=== PATIENT | male | born 1940 ===

== ENCOUNTER 2016-12-07 09:49 | Day surgery (SDC) | payer MEDICARE, OTHER ==
[2015-09-16 06:40] VITALS: BMI 28.8
[2016-12-07 10:30] VITALS: RESP 18
[2016-12-07] MEDS ORDERED: Midazolam 2 MG/2 ML VIAL ONE (12:01)
[2016-12-07] MEDS ORDERED: Lidocaine 1% Inj (20ml) IJ ONE ×2 (12:09)
[2016-12-07] MEDS ORDERED: Bupivacaine HCl 0.25% PF (10 ml) Inj IJ ONE ×2 (12:09)
[2016-12-07] MEDS ORDERED: MethylPREDNISolone Depo 40 mg/ml Inj IM ONE (12:10)
[2016-12-07] MEDS ORDERED: Iohexol 300 10 ML IJ ONE ×2 (12:10)
[2016-12-07] MEDS ORDERED: Lactated Ringer's 1,000 ML IV SCH (12:23)
[2016-12-07 14:26] VITALS: BP 139/89; PULSE 72; TEMP 97.7
[2016-12-07 14:29] VITALS: O2SAT 99
--- NOTE | 2016-12-07 14:51 | RAD ---
PROCEDURE: Intraoperative Fluoroscopy. HISTORY: PAIN MANAGEMENT FINDINGS: Fluoroscopic assistance was provided. 32.3 seconds fluoroscopy time utilized during this procedure. Radiation dose = 21.65 mGy.
--- NOTE | 2016-12-07 21:26 | OP ---
PROCEDURE DATE: 12/07/2016 PREOPERATIVE DIAGNOSIS: Lumbar radiculopathy. POSTOPERATIVE DIAGNOSIS: Lumbar radiculopathy. PROCEDURE: Right L4-L5, L5-S1 transforaminal epidural steroid injection. ANESTHESIOLOGIST: Dr. Coombs. SURGEON: Dr. Gallegos. TYPE OF ANESTHESIA: Monitored anesthesia care. COMPLICATIONS: None. SPECIMEN: None. PROCEDURE: As follows, after we had discussion of the procedure with the patient including its risks, benefits, alternative, outcome data, possibility of no effect or increased pain, the patient consented to the procedure. He denies any recent infections, bleeding tendencies or being on anticoagulants. Decision was then made to proceed to the OR. The patient was placed on a fluoroscopy table in a prone position with 2 pillows underneath his abdomen. The back was prepped and draped in the usual sterile fashion and sterile technique was adhered during the entire procedure. The L4 and L5 vertebral levels were first identified in the anterior and posterior view. Angulation towards the right at approximately 25 degrees was obtained to maximize the visualization of the right L4 and L5 pedicles. The skin overlying the 6 o'clock position of both pedicles was infiltrated with 1% lidocaine using a 25-gauge needle. Subsequently, a 22-gauge 3.5 inch spinal needle was incrementally advanced under fluoroscopic guidance until tip of the needle lay within the intervertebral foramen. After satisfactory positioning of both needles, approximately 0.5 mL of Isovue contrast was injected showing appropriate epidural nerve root spread without any signs of CSF or intervenous involvement. At this point, approximately 3 mL of 0.25% Marcaine and Depo Medrol mixture was injected. The needle was then removed and the patient's back was clean and dry and bandages were applied. The patient was then transferred to recovery area in good conditions without any signs of BRASS CUTTER toxicity or any neurological deficits. He will have to follow up in office in approximately 2-4 weeks. En-Rj Gallegos MD
== END 2016-12-07 14:50 | disposition home or self-care (01) ==
LOC: H.OPSURG 09:49
PROVIDERS: ATTEND Anesthesiology
DX: M54.16 Radiculopathy, lumbar region (principal); E11.9 Type 2 diabetes mellitus without complications; E78.5 Hyperlipidemia, unspecified; I10 Essential (primary) hypertension
CPT/HCPCS: 64483; 64484; 82948; J1030; J2250; J2405; J3010; J7120; Q9967

== ENCOUNTER 2016-12-31 10:30 | Emergency (ER) | payer MEDICARE, OTHER ==
[2016-12-31 10:30] VITALS: BMI 28.8
--- NOTE | 2016-12-31 11:19 | RAD ---
HISTORY: RUQ pain, chest discomfort COMPARISON: Chest radiographs 01/03/2016. TECHNIQUE: Chest PA and lateral FINDINGS: LUNGS: No active pulmonary disease. PLEURA: No significant pleural effusion identified. No pneumothorax apparent. CARDIOVASCULAR: Sternotomy wires as well as cardiomegaly are stable appearing. OSSEOUS STRUCTURES: No significant abnormalities. VISUALIZED UPPER ABDOMEN: Normal. OTHER FINDINGS: None. IMPRESSION: No interval acute cardiopulmonary disease identified. Cardiomegaly is stable and sternotomy wires are again seen compared chest radiographs 01/03/2016.
--- NOTE | 2016-12-31 11:33 | ED PDOC ---
HPI: Abdomen Time Seen by Provider: 12/31/16 10:45 Chief Complaint (Nursing): Abdominal Pain Chief Complaint (Provider): Upper Abdominal Pain History Per: Patient History/Exam Limitations: no limitations Onset/Duration Of Symptoms: Days (x1 month ) Current Symptoms Are (Timing): Still Present Additional Complaint(s): Will Barrios is a 76 year old male with a past medical history of diabetes and hypertension and a past surgical history of a heart transplant in 2000 presenting to the ED for an evaluation of abdominal pain described as upper abdomen pain radiating to his right side ongoing intermittently for 1 month. The patient states this pain worsens with leaning forward or when taking deep breaths. He denies nausea, vomiting, diarrhea, fever, noticing any changes in relation to eating, or abdominal surgeries. PMD: Will Blandon MD Past Medical History Reviewed: Historical Data, Nursing Documentation, Vital Signs Vital Signs: Last Vital Signs Temp 97 F L 12/31/16 10:34 Pulse 95 H 12/31/16 10:34 Resp BP 143/74 12/31/16 10:34 Pulse Ox 97 12/31/16 10:34 - Medical History PMH: Arthritis, Diabetes, HTN, Hypercholesterolemia Denies: Chronic Kidney Disease - Surgical History Other surgeries: heart transplant in 2000 - Family History Family History: States: Unknown Family Hx - Social History Current smoker - smoking cessation education provided: No Ex-Smoker (has not smoked in the last 12 months): No Alcohol: None Drugs: Denies - Home Medications Home Medications: Ambulatory Orders Medication Instructions Recorded Aspirin [Aspirin] 81 mg PO DAILY 12/31/13 Cyclosporine, Modified [Neoral] 25 mg PO DAILY 12/31/13 Fenofibrate [Tricor] 145 mg PO DAILY 12/31/13 Gabapentin [Neurontin] 300 mg PO DAILY 12/31/13 Insulin Glargine,Hum.rec.anlog 14 unit SC DAILY 12/31/13 [Lantus] Lamotrigine [Lamictal] 150 mg PO DAILY 12/31/13 Mycophenolate Mofetil [Cellcept] 500 mg PO BID 12/31/13 [id number] Ethyl Esters [Lovaza] 1 gm PO DAILY 12/31/13 Pantoprazole Sodium [Protonix] 40 mg PO DAILY 12/31/13 Prednisone 2.5 mg PO DAILY 10/09/14 Ramipril [Altace] 10 mg PO DAILY 12/31/13 Vitamin B Complex and Vitami 1 mg PO DAILY 12/31/13 [Vitaplex] amLODIPine [Norvasc] 2.5 mg PO DAILY 12/31/13 Hydroxychloroquine Sulfate 200 mg PO DAILY 03/03/15 [Plaquenil] Simvastatin [Simvastatin] 20 mg PO DAILY 03/03/15 Tramadol Hydrochloride [Tramadol] 37.5 mg PO DAILY 03/03/15 - Allergies Allergies/Adverse Reactions: Allergies Allergy/AdvReac Type Severity Reaction Status Date / Time No Known Allergies Allergy Verified 12/31/16 11:17 Review of Systems ROS Statement: Except As Marked, All Systems Reviewed And Found Negative Gastrointestinal: Positive for: Abdominal Pain Physical Exam - Reviewed Nursing Documentation Reviewed: Yes Vital Signs Reviewed: Yes - Physical Exam Appears: Positive for: Non-toxic, No Acute Distress Head Exam: Positive for: ATRAUMATIC, NORMOCEPHALIC Skin: Positive for: Normal Color, Warm, Dry Eye Exam: Positive for: Normal appearance, EOMI, PERRL ENT: Positive for: Normal ENT Inspection Neck: Positive for: Normal, Supple Cardiovascular/Chest: Positive for: Regular Rate, Rhythm, Chest Non Tender, Other (healed central chest scar). Negative for: Murmur Respiratory: Positive for: Normal Breath Sounds. Negative for: Respiratory Distress Gastrointestinal/Abdominal: Positive for: Soft, Tenderness (mild right upper quadrant tenderness ). Negative for: Other (no McBurney's tenderness ) Back: Positive for: Normal Inspection. Negative for: L CVA Tenderness, R CVA Tenderness Extremity: Positive for: Normal ROM Neurologic/Psych: Positive for: Alert, Oriented (x3). Negative for: Motor/ Sensory Deficits - ECG O2 Sat by Pulse Oximetry: 97 (RA) Pulse Ox Interpretation: Normal Medical Decision Making Medical Decision Making: Time: 10:45 Impression: Upper Abdominal pain Plan: Work up with blood work & US/Xray * ED ekg * CMP * Lipase * CBC (with differential) * Urinalysis * [RAD] Chest Two Views (PA/LAT) * [US] Abdomen Complete * Reevaluation Scribe Attestation: Documented by Nikki Palomo, acting as a scribe for Quoc Chan DO. Provider Scribe Attestation: All medical record entries made by the Scribe were at my direction and personally dictated by me. I have reviewed the chart and agree that the record accurately reflects my personal performance of the history, physical exam, medical decision making, and the department course for this patient. I have also personally directed, reviewed, and agree with the discharge instructions and disposition. Disposition - Disposition
[2016-12-31 11:39] LABS: BASO % 0.6 % (0.0-2.0); EOS # 0.1 K/uL (0.0-0.7); EOS % 1.5 % (0.0-4.0); HEMATOCRIT 35.7 % (35.0-51.0); LYMPH # 1.1 K/uL (1.0-4.3); LYMPH % 13.8 % (20.0-40.0); MEAN CELL VOLUME 91.5 fl (80.0-94.0); MEAN CORPUSCULAR HEMOGLOBIN 30.5 pg (27.0-31.0); MEAN CORPUSCULAR HGB CONC 33.4 g/dL (33.0-37.0); MEAN PLATELET VOLUME 8.2 fl (7.2-11.7); MONO # 0.8 K/uL (0.0-0.8); MONO % 10.8 % (0.0-10.0); NEUT # 5.8 K/uL (1.8-7.0); NEUT % 73.3 % (50.0-75.0); NRBC % 0.1 % (0.0-0.0); RED CELL DISTRIBUTION WIDTH 14.2 % (11.5-14.5); WHITE BLOOD COUNT 7.8 K/uL (4.8-10.8)
[2016-12-31 12:05] LABS: ALB/GLOB RATIO 1.3 (1.0-2.1); BILIRUBIN,TOTAL 0.5 mg/dl (0.2-1.3); CALCIUM 9.6 mg/dL (8.4-10.2); POTASSIUM 4.9 MMOL/L (3.6-5.0); TOTAL PROTEIN 7.3 G/DL (6.3-8.2)
--- NOTE | 2016-12-31 12:43 | US ---
HISTORY: RUQ pain x1 month COMPARISON: None available TECHNIQUE: Sonographic evaluation of the abdomen. FINDINGS: LIVER: Measures 16.2 cm in sagittal dimension. Echogenic liver may be seen in setting of hepatic parenchymal disease or fatty infiltration. No focal hepatic mass identified. The main portal vein appears patent with normal directional flow. No intrahepatic bile duct dilatation. GALLBLADDER: No gallstones. No gallbladder wall thickening. Negative sonographic Sue's sign as assessed by the [employer] cross executive director. COMMON BILE DUCT: Measures 5 mm. PANCREAS: Not well visualized. RIGHT KIDNEY: Measures 9.2 x 4.7 x 4.7cm. No obstructing calculus or hydronephrosis identified. Midpole renal cyst measures approximately 1.0 x 1.0 x 0.8 cm. LEFT KIDNEY: Measures 11.6 x 6.2 x 5.8cm. No obstructing calculus or hydronephrosis identified. The lower pole renal cyst measures approximately 1.9 x 1.5 x 1.7 cm. SPLEEN: Measures approximately 10 cm. AORTA: Not well-visualized. IVC: Not well-visualized. OTHER FINDINGS: None. IMPRESSION: Echogenic liver may be seen in setting of hepatic parenchymal disease or fatty infiltration. Bilateral renal cysts.
[2016-12-31] MEDS ORDERED: Iohexol 240 (50 ml) PO ONE (13:30)
[2016-12-31 13:59] LABS: RBC URINE 2 /hpf (0-3); URINE BILIRUBIN NEGATIVE (NEGATIVE); URINE BLOOD NEGATIVE (NEGATIVE); URINE COLOR YELLOW (YELLOW); URINE GLUCOSE (UA) NEG (Normal); URINE KETONE NEGATIVE (NEGATIVE); URINE LEUKOCYTE ESTERASE NEG Leu/uL (Negative); URINE PROTEIN NEGATIVE (NEGATIVE); URINE UROBILINOGEN 0.2-1.0 mg/dL (0.2-1.0); WBC URINE < 1 /hpf (0-5)
[2016-12-31] MEDS ORDERED: Iohexol 240 (50 ml) ONE (14:13)
--- NOTE | 2016-12-31 17:05 | CT ---
PROCEDURE: CT Abdomen and Pelvis with contrast HISTORY: upper abd pain hx heart transplant COMPARISON: None. TECHNIQUE: Contrast dose: Radiation dose: Total exam DLP = 1015.50 mGy-cm. This CT exam was performed using one or more of the following dose reduction techniques: Automated exposure control, adjustment of the mA and/or kV according to patient size, and/or use of iterative reconstruction technique. FINDINGS: LOWER THORAX: Cardiomegaly. No pleural or pericardial effusion grossly evident. LIVER: Unremarkable. No gross lesion or ductal dilatation. GALLBLADDER AND BILE DUCTS: Unremarkable. PANCREAS: Unremarkable. No gross lesion or ductal dilatation. SPLEEN: Unremarkable. ADRENALS: Unremarkable. No mass. KIDNEYS AND URETERS: 1.8 cm left renal cyst measures 1 Hounsfield unit posteriorly off the midpole left kidney. Bilateral streaky perinephric changes are nonspecific. No obstructive uropathy bilaterally or radiodense urolithiasis. Clinically correlate further nevertheless. VASCULATURE: Mildly atherosclerotic abdominal aorta noted. No aortic aneurysm. BOWEL: Sigmoid diverticulosis without diverticulitis evident grossly. No obstruction. No gross mural thickening. APPENDIX: Normal appendix. PERITONEUM: Unremarkable. No free fluid. No free air. LYMPH NODES: Unremarkable. No enlarged lymph nodes. BLADDER: Limited evaluation of the urinary bladder wall due to incomplete distention. No nodularity is identified nevertheless. REPRODUCTIVE: Enlarged prostate gland. BONES: No acute fracture. OTHER FINDINGS: Tiny umbilical hernia appears to contain only fat at this time. IMPRESSION: 1. Lack intravenous contrast limits interpretation however there are no definitive acute abdominal findings as discussed above. 2. Sigmoid diverticulosis without definite diverticulitis. 3. Enlarged prostate gland. 4. Small umbilical hernia contains only fat. 5. Nonspecific bilateral perinephric streaky changes without obstructive uropathy grossly evident.
[2016-12-31 17:32] VITALS: BP 146/80; PULSE 75; RESP 18; TEMP 98; O2SAT 99
--- NOTE | 2017-01-01 12:46 | CARD ---
APPROVED REPORT EKG Measurement Heart [id number] <Conclusion> Normal sinus rhythm Normal ECG
== END 2016-12-31 17:57 | disposition home or self-care (01) ==
LOC: H.ER 10:30
DX: R10.11 Right upper quadrant pain (principal); E11.9 Type 2 diabetes mellitus without complications; I10 Essential (primary) hypertension; Z94.1 Heart transplant status
CPT/HCPCS: 71020; 74176; 76700; 80053; 81003; 83690; 85025; 93005; 99283; Q9966

== ENCOUNTER 2017-02-28 10:04 | Day surgery (SDC) | payer MEDICARE, OTHER ==
[2017-02-28] MEDS ORDERED: Lactated Ringer's 1,000 ML IV ONE (10:28)
[2017-02-28 10:45] VITALS: TEMP 97.6
[2017-02-28] MEDS ORDERED: Lidocaine 2% MPF (5 ml) Inj ONE (11:28)
[2017-02-28] MEDS ORDERED: Propofol 10 mg/ml Inj (20 ML) ONE (11:28)
[2017-02-28 11:55] VITALS: O2SAT 99
[2017-02-28 12:00] VITALS: BP 125/70; PULSE 71; RESP 16
== END 2017-02-28 14:47 | disposition home or self-care (01) ==
LOC: H.ENDO 10:04
PROVIDERS: ATTEND Internal Medicine Gastroenterology
DX: R10.13 Epigastric pain (principal); E11.9 Type 2 diabetes mellitus without complications; I25.10 Atherosclerotic heart disease of native coronary artery without angina pectoris; Z94.1 Heart transplant status; K22.8 Other specified diseases of esophagus; K31.7 Polyp of stomach and duodenum; K31.9 Disease of stomach and duodenum, unspecified
CPT/HCPCS: 43239; 88305; J2704; J7120

== ENCOUNTER 2017-03-13 09:35 | Day surgery (SDC) | payer MEDICARE, OTHER ==
[2017-03-13 10:24] VITALS: RESP 18
[2017-03-13] MEDS ORDERED: methylPREDNISolone Depo 80 mg/ml Inj ONE (10:29)
[2017-03-13] MEDS ORDERED: Iohexol 300 10 ML ONE (10:30)
[2017-03-13] MEDS ORDERED: Bupivacaine HCl 0.25% PF (30 ml) Inj ONE (10:30)
[2017-03-13] MEDS ORDERED: Lidocaine 1% Inj (20ml) ONE (10:30)
[2017-03-13] MEDS ORDERED: Lactated Ringer's 1,000 ML IV ONE (11:05)
[2017-03-13] MEDS ORDERED: Midazolam 2 MG/2 ML VIAL ONE (11:06)
[2017-03-13] MEDS ORDERED: Lactated Ringer's 1,000 ML IV SCH (11:45)
[2017-03-13 12:32] VITALS: BP 129/76; PULSE 76; TEMP 97.6; O2SAT 99
--- NOTE | 2017-03-13 15:15 | OP ---
PROCEDURE DATE: 03/13/2017 PREOPERATIVE DIAGNOSIS: Lumbar radiculopathy. POSTOPERATIVE DIAGNOSIS: Lumbar radiculopathy. PROCEDURE: Right L4-L5, L5-S1 transforaminal epidural steroid injection. ANESTHESIA ADMINISTERED BY: Dr. Burleson. SURGEON: Candice Gallegos MD TYPE OF ANESTHESIA: Monitored anesthesia care. COMPLICATIONS: None. SPECIMEN: None. DESCRIPTION OF PROCEDURE: After we had discussion of the procedure with the patient including its risks, benefits, alternatives, outcome data, possibility of no effect or increased pain, the patient consented to the procedure. He denies any recent infections, bleeding tendencies, or being on anticoagulants, decision was then made to proceed to the OR. The patient was placed on a fluoroscopy table in a prone position with 2 pillows underneath his abdomen. The back was prepped and draped in the usual sterile fashion and sterile technique was adhered to during the entire procedure. The L4 and L5 vertebral levels were first identified in the anterior and posterior view. Angulation towards the right at approximately 25 degrees was used to maximize the visualization of the right L4 and L5 pedicles. The skin overlying the 6 o'clock position of both pedicles was infiltrated with 1% lidocaine using 25-gauge needle. Subsequently, a 22-gauge 2.5-inch spinal needle was then incrementally advanced under fluoroscopic guidance until tip of the needle lay within the intravertebral foramen. At this point, approximately 0.5 mL of Isovue contrast was injected to reveal appropriate epidural and nerve root spread without any signs of CSF or intravenous involvement. At this point, approximately 3 mL of 0.25% Marcaine and Depo-Medrol mixture was injected. The needle was then removed and the patient's back was cleaned and dried. Bandages were applied. The patient was then transferred to the recovery area in good conditions without any signs of SNACK STEWARDESS toxicity or any neurological deficits. He will have a followup in our office in approximately 2 to 4 weeks. Candice Gallegos MD
--- NOTE | 2017-03-14 18:01 | RAD ---
PROCEDURE: Lumbar epidural HISTORY: PAIN MANAGEMENT COMPARISON: None TECHNIQUE: Standard protocol for this study/examination. FINDINGS: Total fluoroscopic time (continuous mode) utilized during the procedure: 38.1 seconds. Total exam DLP: (mGy): 15.54 IMPRESSION: Less than 1 hr fluoroscopic time utilized during performance of the procedure.
== END 2017-03-13 13:10 | disposition home or self-care (01) ==
LOC: H.OPSURG 09:35
PROVIDERS: ATTEND Anesthesiology
DX: M54.16 Radiculopathy, lumbar region (principal); I25.10 Atherosclerotic heart disease of native coronary artery without angina pectoris; I10 Essential (primary) hypertension
CPT/HCPCS: 64483; 64484; 82948; J1040; J2250; J3010; J7120; Q9967

== ENCOUNTER 2017-05-17 06:03 | Day surgery (SDC) | payer MEDICARE, MEDICAID ==
[2017-05-17 06:28] VITALS: RESP 20
[2017-05-17 06:40] VITALS: BMI 27.3
[2017-05-17] MEDS ORDERED: Lactated Ringer's 1,000 ML IV ONE (06:46)
[2017-05-17] MEDS ORDERED: MethylPREDNISolone Depo 40 mg/ml Inj ONE (07:42)
[2017-05-17] MEDS ORDERED: Iohexol 300 10 ML ONE (07:42)
[2017-05-17] MEDS ORDERED: Bupivacaine HCl 0.25% PF (10 ml) Inj ONE (07:43)
[2017-05-17] MEDS ORDERED: Lidocaine 1% Inj (20ml) ONE (07:43)
[2017-05-17] MEDS ORDERED: Midazolam 2 MG/2 ML VIAL ONE (07:51)
[2017-05-17 08:40] VITALS: O2SAT 100
[2017-05-17] MEDS ORDERED: Lactated Ringer's 1,000 ML IV SCH (08:45)
[2017-05-17 09:12] VITALS: BP 141/80; PULSE 84; TEMP 97.6
--- NOTE | 2017-05-17 09:29 | OP ---
PROCEDURE DATE: 05/17/2017 PREOPERATIVE DIAGNOSIS: Lumbar radiculopathy. POSTOPERATIVE DIAGNOSIS: Lumbar radiculopathy. PROCEDURE: Left L4-L5 and L5-S1 transforaminal epidural steroid injection and right L5-S1 transforaminal epidural steroid injection. ANESTHESIOLOGIST: Pablito Shearer MD SURGEON: Candice Gallegos MD TYPE OF ANESTHESIA: Monitored anesthesia care. COMPLICATIONS: None. SPECIMEN: None. DESCRIPTION OF PROCEDURE: As follows. After we had discussion of the procedure with the patient including its risks, benefits, alternatives, outcome data, possibility of no effect or increased pain, the patient consented to the procedure. He denies any recent infections, bleeding tendencies, or being on anticoagulants, a decision was then made to proceed to the OR. The patient was placed on a fluoroscopy table in a prone position with 2 pillows underneath his abdomen. The back was prepped and draped in the usual sterile fashion and sterile technique was adhered to during the entire procedure. The L4 and L5 vertebral levels were first identified in the anterior and posterior view. Angulation towards the left at approximately 25 degrees was used to maximize the visualization of the left L4 and L5 pedicles. The skin overlying the 6 o'clock position of both pedicles was infiltrated with 1% lidocaine using 25-gauge needle. Subsequently, a 22-gauge 3.5-inch spinal needle was then incrementally advanced under fluoroscopic guidance until tip of the needle lie within the intravertebral foramen. After satisfactory position of both needles, approximately 0.5 mL of Isovue contrast was injected showing appropriate epidural nerve root spread without any signs of CSF or intravenous involvement. At this point, approximately 3 mL of 0.25% Marcaine and Depo-Medrol mixture was injected. The needle was then removed and the same exact procedure was performed on the contralateral right side only at the L5-S1 level. At the end of the case, the patient's back was cleaned and dried, and bandages were applied. The patient was then transferred to the recovery area in good conditions without any signs of BECK OPERATOR toxicity or any neurological deficits. He will have a followup in our office in approximately 2 to 4 weeks. Candice Gallegos MD [facility] # [id number]
--- NOTE | 2017-05-17 19:13 | RAD ---
PROCEDURE: Intraoperative Fluoroscopy. HISTORY: PAIN MANAGEMENT PAIN MANAGEMENT FINDINGS: Fluoroscopic assistance was provided for lumbar epidural pain management. Please refer to the operative report from [place] [facility]. 62.2 seconds of fluoroscopy time was utilized with a cumulative DLP dose of 31.81 mGy.
== END 2017-05-17 09:43 | disposition home or self-care (01) ==
LOC: H.OPSURG 06:03
PROVIDERS: ATTEND Anesthesiology
DX: M54.16 Radiculopathy, lumbar region (principal); E11.9 Type 2 diabetes mellitus without complications; I10 Essential (primary) hypertension
CPT/HCPCS: 64483; 64484; 82948; J1030; J2250; J3010; J7120; Q9967

== ENCOUNTER 2018-01-28 06:14 | Day surgery (SDC) | payer MEDICARE, OTHER ==
[2018-01-28 06:41] VITALS: RESP 20
[2018-01-28 06:49] VITALS: BMI 28.8
[2018-01-28] MEDS ORDERED: MethylPREDNISolone Depo 40 mg/ml Inj ONE (07:47)
[2018-01-28] MEDS ORDERED: Bupivacaine HCl 0.25% PF (30 ml) Inj ONE (07:47)
[2018-01-28] MEDS ORDERED: Lidocaine 1% Inj (20ml) ONE (07:48)
[2018-01-28] MEDS ORDERED: Iohexol 300 10 ML ONE (07:48)
[2018-01-28] MEDS ORDERED: Midazolam 2 MG/2 ML VIAL ONE (08:12)
[2018-01-28] MEDS ORDERED: Lactated Ringer's 1,000 ML IV ONE (08:15)
[2018-01-28] MEDS ORDERED: methylPREDNISolone Depo 80 mg/ml Inj IM ONE (08:18)
[2018-01-28] MEDS ORDERED: Lidocaine 1% Inj (20ml) IJ ONE (08:18)
[2018-01-28] MEDS ORDERED: Iohexol 300 10 ML IJ ONE (08:18)
[2018-01-28] MEDS ORDERED: Lactated Ringer's 1,000 ML IV SCH ×2 (08:33→08:45)
[2018-01-28 10:00] VITALS: BP 147/84; PULSE 73; TEMP 98
[2018-01-28 11:13] VITALS: O2SAT 98
--- NOTE | 2018-01-28 20:54 | OP ---
PROCEDURE DATE: 01/28/2018 PREOPERATIVE DIAGNOSIS: Lumbar radiculopathy. POSTOPERATIVE DIAGNOSIS: Lumbar radiculopathy. PROCEDURE: Right L4-L5 and L5-S1 transforaminal epidural steroid injection. ANESTHESIOLOGIST: Yamil Martinez MD SURGEON: Candice Gallegos MD ANESTHESIA TYPE: Monitored anesthesia care. COMPLICATIONS: None. SPECIMEN: None. DESCRIPTION OF PROCEDURE: Procedure is as follows: After we had a discussion of the procedure with the patient including its risks, benefits, alternatives, outcome data, and possibility of no effect or increased pain, the patient consented to the procedure. He denied any recent infection, bleeding tendencies, or being on anticoagulants. A decision was then made to proceed to the OR. The patient was placed on the fluoroscopy table in a prone position with two pillows underneath his abdomen. The back was prepped and draped in the usual sterile fashion, and a sterile technique was adhered to during the entire procedure. The L4 and L5 vertebral levels were first identified in the anteroposterior view. Angulation towards the right at approximately 20 degrees was used to maximize the visualization of the right L4 and L5 pedicles. The skin overlying the 6 o'clock position of both pedicles was then infiltrated with 1% lidocaine using a 25-gauge needle. Subsequently, a 22-gauge 3.5-inch spinal needle was then incrementally advanced under fluoroscopic guidance until tip of the needle walked into the intervertebral foramen. This was confirmed by injecting approximately 0.5 mL of Isovue contrast, which showed appropriate epidural nerve root spread without any signs of CSF or intervenous involvement. At this point, approximately 3 mL of 0.25% Marcaine and Depo-Medrol mixture was injected into each level. At the end of the case, the needles were removed. The patient's back was cleaned, and dry bandages were applied. The patient was then transferred to recovery area in good condition without any signs of RESEARCH ELECTRICIAN toxicity or any neurological deficit. He will be following up in office in approximately two to four weeks. Candice Gallegos MD
--- NOTE | 2018-01-29 15:37 | RAD ---
Date of service: 01/28/2018 PROCEDURE: Intraoperative Fluoroscopy. The HISTORY: PAIN MANAGEMENT FINDINGS: Fluoroscopic assistance was provided. Fluoroscopy time = 42.6 sec. Radiation dose = 29.96 mGy. Please refer to the operative report from [place] [facility].
== END 2018-01-28 08:15 | disposition home or self-care (01) ==
LOC: H.OPSURG 06:14
PROVIDERS: ATTEND Anesthesiology
DX: M54.16 Radiculopathy, lumbar region (principal); I25.110 Atherosclerotic heart disease of native coronary artery with unstable angina pectoris; M19.90 Unspecified osteoarthritis, unspecified site; E11.9 Type 2 diabetes mellitus without complications; E78.5 Hyperlipidemia, unspecified; I10 Essential (primary) hypertension
CPT/HCPCS: 64483; 64484; 82948; J1030; J1040; J2250; J3010; J7120; Q9967

== ENCOUNTER 2018-02-19 08:52 | Day surgery (SDC) | payer MEDICARE, OTHER ==
[2018-02-19] MEDS ORDERED: Lactated Ringer's 1,000 ML IV ONE (08:59)
[2018-02-19 09:14] VITALS: RESP 20
[2018-02-19] MEDS ORDERED: Iohexol 300 10 ML ONE (10:06)
[2018-02-19] MEDS ORDERED: methylPREDNISolone Depo 80 mg/ml Inj ONE (10:06)
[2018-02-19] MEDS ORDERED: Lidocaine 1% Inj (20ml) ONE (10:06)
[2018-02-19] MEDS ORDERED: Bupivacaine HCl 0.25% PF (30 ml) Inj ONE (10:06)
[2018-02-19 11:23] VITALS: O2SAT 99
[2018-02-19 11:24] VITALS: BP 127/82; PULSE 76; TEMP 97.6
--- NOTE | 2018-02-19 12:59 | RAD ---
Date of service: 02/19/2018 PROCEDURE: Intraoperative Fluoroscopy. HISTORY: PAIN MANAGEMENT FINDINGS: Fluoroscopic assistance was provided for pain management. Please refer to the operative report from [place] [facility]. Total fluoroscopic time (continuous mode) utilized during the procedure 54.3 seconds. Total exam DLP: 38.82 (mGy).
--- NOTE | 2018-02-20 07:37 | OP ---
PROCEDURE DATE: 02/19/2018 PREOPERATIVE DIAGNOSIS: Lumbar radiculopathy. POSTOPERATIVE DIAGNOSIS: Lumbar radiculopathy. PROCEDURE: Left L3-L4, L4-L5 and L5-S1 transforaminal epidural steroid injections and left cervical trigger point injection. ANESTHESIOLOGIST: Dr. Avalos SURGEON: Candice Gallegos MD TYPE OF ANESTHESIA: Moderate anesthesia care. COMPLICATIONS: None. SPECIMEN: None. DESCRIPTION OF PROCEDURE: The procedure is as follows. After we had a discussion of the procedure with the patient including its risks, benefits, alternatives, outcome data, possibility of no effect or increased pain, the patient consented to the procedure. He denied any recent infection, bleeding tendencies, or being on anticoagulants. A decision was then made to proceed to the OR. The patient was placed on a fluoroscopy table in a prone position with two pillows underneath his abdomen. The back was prepped and draped in the usual sterile fashion. A sterile technique was adhered to during the entire procedure. The L3, L4, and L5 vertebral levels were first identified in the anteroposterior view. Angulation towards the left at approximately 20 degrees was used to maximize the visualization of the left L3, L4 and L5 pedicles. The skin overlying the three above target areas, which is at the 6 o'clock position of both pedicles, was then infiltrated with 1% lidocaine using a 25-gauge needle. Subsequently, a 22-gauge 3.5-inch spinal needle was incrementally advanced under fluoroscopic guidance until tip of the needle walked into the intervertebral foramen. This was confirmed by injecting approximately 0.5 mL of Isovue contrast, which showed appropriate epidural nerve root spread without any signs of CSF or intervenous involvement. At this point, approximately 3 mL of 0.25% Marcaine and Depo-Medrol mixture was injected. The needle was then removed. Then, the trigger points over the left trapezius muscle were palpated and identified. The skin overlying this area was cleansed with Betadine. Using a 25-gauge needle, approximately 10 mL of 0.25% Marcaine mixture was injected in a fan-like fashion over two trigger points. The patient tolerated the procedure well. At the end of the case, the patient's back and shoulder were cleaned, and dry bandages were applied. The patient was then transferred to recovery area in good condition without any signs of PAINTER PLATE toxicity or any neurological deficit. He will be following in the office in approximately two to four weeks. En-Rj Gallegos MD
== END 2018-02-19 11:52 | disposition home or self-care (01) ==
LOC: H.OPSURG 08:52
PROVIDERS: ATTEND Anesthesiology
DX: M54.16 Radiculopathy, lumbar region (principal)
CPT/HCPCS: 64483; 64484; 82948; G0260; J1040; J7120; Q9967